=== PATIENT | female | born 2000 | race Caucasian/White ===

== ENCOUNTER 2022-01-23 06:25 | Emergency (ER) | payer BC ==
[2022-01-23 07:13] LABS: Absolute Lymphocytes (CBC) 1.2 K/uL (0.7-4.9); Hematocrit 40.2 % (36.0-45.0); MCV 92.2 fL (80-100); MPV 8.1 fL (7.6-11.3); RBC Red Blood Cell Count 4.36 M/uL (3.86-4.86)
--- NOTE | 2022-01-23 07:25 | RAD REPORT ---
EXAM DESCRIPTION: CT - Head Brain Wo Cont - 01/23/2022 7:13 am CLINICAL HISTORY: seizure COMPARISON: No comparisons TECHNIQUE: All CT scans are performed using dose optimization technique as appropriate and may inclu de automated exposure control or mA/KV adjustment according to patient size. FINDINGS: No intracranial hemorrhage, hydrocephalus or extra-axial fluid collection.No areas of brai n edema or evidence of midline shift. The paranasal sinuses and mastoids are clear. The calvarium is intact. IMPRESSION: No acute intracranial abnormality.
[2022-01-23 07:28] LABS: Potassium 3.6 mmol/L (3.5-5.1)
--- NOTE | 2022-01-23 08:06 | EDPHYS ---
Physician Documentation [facility] Name: Kellie Ramírez Age: 21 yrs Sex: Female : 2000 Arrival Date: 01/23/2022 Time: 06:29 Bed 18 Private MD: ED Physician Nnamdi Kaufman HPI: 01/23 08:11 This 21 yrs old Female presents to ER via Ambulatory with complaints of Probable ms3 Seizure. 08:11 The patient presents after having a single isolated seizure, that lasted 3 minute(s). ms3 Character of seizure(s): Loss of consciousness: the patient experienced loss of consciousness, brief, Motor activity: generalized, shaking all over, Incontinence: none, Apnea: the patient did not experience apnea, Circulation: the patient did not experience evidence of pulse disturbance, Eye movements: are unknown. Seizure onset: just prior to arrival. Context: the seizure(s) was witnessed, by a friend, occurred at home, occurred while the patient was sitting, Contributing factors: suspected or documented drug use, Street Xanax, marijuana. Seizure Hx: the patient has no previous seizure history. Associated injury: The patient did not suffer any apparent associated injury. EMS care: none. Current symptoms: Currently, the patient is not experiencing any symptoms, the patient feels back to baseline. 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 - Social history:: Smoking status: Patient uses street drugs, marijuana. ROS: 08:11 Constitutional: Negative for fever, and chills. Neck: Negative for injury, pain, and ms3 swelling, Cardiovascular: Negative for chest pain, and palpitations. Respiratory: Negative for shortness of breath, cough, wheezing, and pleuritic chest pain, Abdomen/GI: Negative for abdominal pain, nausea, vomiting, diarrhea, and constipation, MS/Extremity: Negative for injury and deformity, Skin: Negative for injury, rash, and discoloration. 08:11 Neuro: Positive for headache. 08:11 Neuro: Positive for seizure activity. 08:11 All other systems are negative. Exam: 08:11 Constitutional: This is a well developed, well nourished patient who is awake, alert, ms3 and in no acute distress. Head/Face: Normocephalic, atraumatic. Neck: Trachea midline, no cervical lymphadenopathy. Supple, full range of motion without nuchal rigidity, or vertebral point tenderness. No Meningismus. Chest/axilla: Normal chest wall appearance and motion. Nontender with no deformity. Cardiovascular: Regular rate and rhythm with a normal S1 and S2. No gallops, murmurs, or rubs. Normal PMI, no JVD. No pulse deficits. Respiratory: Lungs have equal breath sounds bilaterally, clear to auscultation and percussion. No rales, rhonchi or wheezes noted. No increased work of breathing, no retractions or nasal flaring. Abdomen/GI: Soft, non-tender, with normal bowel sounds. No distension or tympany. No guarding or rebound. No evidence of tenderness throughout. Skin: Warm, dry with normal turgor. Normal color with no rashes, no lesions, and no evidence of cellulitis. Neuro: Awake and alert, GCS 15, oriented to person, place, time, and situation. Cranial nerves II-XII grossly intact. Motor strength 5/5 in all extremities. Sensory grossly intact. Cerebellar exam normal. Normal gait. Psych: Awake, alert, with orientation to person, place and time. Behavior, mood, and affect are within normal limits. Vital Signs: 06:43 BP 108 / 72; Pulse 60; Resp 18; Temp 98.1; Pulse Ox 97% ; Weight 56.7 kg; Height 5 ft. ja4 2 in. (157.48 cm); Pain 0/10; 08:17 BP 111 / 72; Pulse 53; Resp 16; Temp 97.7; Pulse Ox 100% ; Pain 2/10; jh6 06:43 Body Mass Index 22.86 (56.70 kg, 157.48 cm) ja4 [place] Coma Score: 06:46 Eye Response: spontaneous(4). Verbal Response: oriented(5). Motor Response: obeys ja4 commands(6). Total: 15. MDM: 06:46 Patient medically screened. ms3 08:07 Differential diagnosis: drug overdose, seizure. Data reviewed: vital signs, nurses ms3 notes, lab test result(s), radiologic studies, and as a result, I will discharge patient. 08:11 Counseling: I had a detailed discussion with the patient and/or guardian regarding: the ms3 historical points, exam findings, and any diagnostic results supporting the discharge/admit diagnosis, lab results, radiology results, the need for outpatient follow up, to return to the emergency department if symptoms worsen or persist or if there are any questions or concerns that arise at home. Special discussion: Discussed with patient she is not to drive, take a bath, swim, or place herself where she would be in harm's way if she were to have a seizure. Patient acknowledged and understands precautions. ED course: Patient remained seizure-free in the emergency department, alert and oriented x4, back to baseline. Patient to follow-up with Dr. Maza in 2 to 3 days as discussed. All questions were answered. Return precautions discussed include worsening symptoms, or any other concerns. 01/23 06:51 Order name: CBC with Diff; Complete Time: 08:00 ms3 01/23 06:51 Order name: BMP; Complete Time: 08:00 ms3 01/23 06:51 Order name: Seizure Precautions ms3 01/23 06:51 Order name: Urine Test (obtain specimen) ms3 01/23 06:51 Order name: CT Head Brain wo Cont; Complete Time: 08:00 ms3 Administered Medications: No medications were administered Disposition Summary: 01/23/22 08:05 Discharge Ordered Location: Home ms3 Condition: Stable ms3 Diagnosis - Other seizures ms3 Followup: ms3 - With: Modesto Maza MD - When: 2 - 3 days - Reason: Recheck today's complaints Discharge Instructions: - Discharge Summary Sheet ms3 - Seizure, Adult ms3 Forms: - Medication Reconciliation Form ms3 - Thank You Letter ms3 - Antibiotic Education ms3 - Prescription Opioid Use ms3 Signatures: Dispatcher [employer] EDMS Nnamdi Kaufman DO DO ms3 Luis Montgomery, RN RN ja4
--- NOTE | 2022-01-23 08:06 | ER ---
Nurse's Notes [facility] Name: Kellie Ramírez Age: 21 yrs Sex: Female : 2000 Arrival Date: 01/23/2022 Time: 06:29 Bed 18 Private MD: Diagnosis: Other seizures Presentation: 01/23 06:43 Chief complaint: Patient states: "I had a seizure tonight, or that's what I am told. ja4 The only thing that I can think off is that I stopped taking Xanax a couple of days ago." Patient states she had been buying the xanax off the street. She so states that she had smoked some weed an hour prior to the seizure. Friend at the bedside states " Her boyfriend said she had a really long seizure and was rolling back and forth in the bed and foam was coming from her mouth. Afterwards she was really confused. We called 911.". Coronavirus screen: Vaccine status: Patient reports being unvaccinated. Ebola Screen: Patient negative for fever greater than or equal to 101.5 degrees Fahrenheit, and additional compatible Ebola Virus Disease symptoms Patient denies exposure to infectious person. Patient denies travel to an Ebola-affected area in the 21 days before illness onset. Initial Sepsis Screen: Does the patient meet any 2 criteria? No. Patient's initial sepsis screen is negative. Does the patient have a suspected source of infection? No. Patient's initial sepsis screen is negative. Risk Assessment: Do you want to hurt yourself or someone else? Patient reports no desire to harm self or others. Onset of symptoms is unknown. 06:43 Method Of Arrival: Ambulatory ja4 06:43 Acuity: JILL 3 ja4 Triage Assessment: 06:46 General: Appears in no apparent distress. Behavior is calm, cooperative, appropriate ja4 for age. Pain: Denies pain. Neuro: Level of Consciousness is awake, alert, obeys commands, Oriented to person, place, time, situation. 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 - Social history:: Smoking status: Patient uses street drugs, marijuana. Screenin:48 Abuse screen: Denies threats or abuse. Nutritional screening: No deficits noted. Fall fu Risk None identified. Assessment: 06:48 General: Appears in no apparent distress. Behavior is calm, cooperative, appropriate fu for age. Pain: Denies pain. Neuro: Level of Consciousness is awake, alert, obeys commands, Oriented to person, place, time, situation, Moves all extremities. Speech is normal. Respiratory: Respiratory effort is even, unlabored, Respiratory pattern is regular. Derm: Skin is intact. 07:15 Reassessment: No changes from previously documented assessment. Patient and/or family jh6 updated on plan of care and expected duration. Pain level reassessed. Patient is alert, oriented x 3, equal unlabored respirations, skin warm/dry/pink. 07:15 Pain: Complains of pain in forehead Pain currently is 2 out of 10 on a pain scale. jh6 Quality of pain is described as aching. Vital Signs: 06:43 BP 108 / 72; Pulse 60; Resp 18; Temp 98.1; Pulse Ox 97% ; Weight 56.7 kg; Height 5 ft. ja4 2 in. (157.48 cm); Pain 0/10; 08:17 BP 111 / 72; Pulse 53; Resp 16; Temp 97.7; Pulse Ox 100% ; Pain 2/10; jh6 06:43 Body Mass Index 22.86 (56.70 kg, 157.48 cm) ja4 [place] Coma Score: 06:46 Eye Response: spontaneous(4). Verbal Response: oriented(5). Motor Response: obeys ja4 commands(6). Total: 15. ED Course: 06:29 Patient arrived in ED. ja2 06:32 Nnamdi Kaufman DO is Attending Physician. ms3 06:46 Triage completed. ja4 06:46 Arm band placed on Patient placed in an exam room. ja4 07:05 Inserted saline lock: 20 gauge in right antecubital area, using aseptic technique. fu Blood collected. 07:10 BMP Sent. fu 07:10 CBC with Diff Sent. fu 07:14 CBC with Diff Sent. fu 07:14 BMP Sent. fu 07:15 CT Head Brain wo Cont In Process Unspecified. EDMS 07:36 Payal Colby, RN is Primary Nurse. 6 08:05 Modesto Maza MD is Referral Physician. ms3 08:18 No provider procedures requiring assistance completed. jh6 08:18 IV discontinued, intact, bleeding controlled, No redness/swelling at site. Pressure jh6 dressing applied. Administered Medications: No medications were administered Outcome: 08:05 Discharge ordered by . ms3 08:18 Discharged to home ambulatory. jh6 08:18 Condition: good 08:18 Discharge instructions given to patient. 08:19 Patient left the ED. [facility] Signatures: Dispatcher [employer] EDOK Tam Tadeo, RN RN Nnamdi Kohler, DO ms3 Parris Luciano ja2 Payal Colby, RN RN jh6 Luis Montgomery RN RN ja4
[2022-01-23 08:27] VITALS: BP 111/72; TEMP 97.7; O2SAT 100
== END 2022-01-23 08:19 | disposition home or self-care (01) ==
LOC: ER 06:25
DX: R56.9 Unspecified convulsions (principal); F31.9 Bipolar disorder, unspecified
CPT/HCPCS: 36415; 70450; 80048; 85025; 99283